=== PATIENT | male | born 1950 | race American Indian/Alaskan Native ===

== ENCOUNTER 2017-12-24 09:33 | Outpatient (CLI) | payer MEDICARE ==
[2017-12-24 10:24] LABS: Chol/HDL Ratio 2.7 %
== END 2017-12-24 09:34 | disposition home or self-care (01) ==
LOC: LAB 09:33
PROVIDERS: ATTEND Internal Medicine
DX: I10 Essential (primary) hypertension (principal); E78.5 Hyperlipidemia, unspecified; E03.9 Hypothyroidism, unspecified
CPT/HCPCS: 36415; 80061; 83036; 84436; 84443; 84479